=== PATIENT | male | born 1965 | race Caucasian/White ===

== ENCOUNTER 2024-05-01 08:03 | Day surgery (SDC) | payer OTHER ==
[~2024-05-01] VITALS: Ht 180.3 cm; Wt 81.5 kg
[2024-05-01] MEDS ORDERED: CeFAZolin Sodium 2,000 MG VIAL ONE ×2 (08:12→09:41)
[2024-05-01] MEDS ORDERED: Lactated Ringer's 1,000 ML IV ONE ×3 (08:13→10:03)
[2024-05-01] MEDS ORDERED: NS 50 ML IV ONE ×2 (08:13→09:41)
[2024-05-01] MEDS ORDERED: Ondansetron HCl 2 MG / ML 2ML Vial ONE (09:24)
[2024-05-01] MEDS ORDERED: propofoL 20 ML IV ONE (09:24)
[2024-05-01] MEDS ORDERED: Dexamethasone Sod Phos 10 MG/ML 1ML VIAL ONE (09:24)
[2024-05-01] MEDS ORDERED: Ketorolac Tromethamine 30mg Vial ONE (09:24)
[2024-05-01] MEDS ORDERED: FentaNYL Citrate 50 MCG/ML 2 ML Injection ONE ×2 (09:24→10:59)
[2024-05-01] MEDS ORDERED: CARV3.125 (09:27)
[2024-05-01] MEDS ORDERED: AMLO10 (09:27)
[2024-05-01] MEDS ORDERED: ALBU90OI (09:27)
[2024-05-01] MEDS ORDERED: ATOR20 (09:27)
[2024-05-01] MEDS ORDERED: ANORO ELLIPTA1 EACH (09:28)
[2024-05-01] MEDS ORDERED: LISI20 (09:28)
--- NOTE | 2024-05-01 09:30 | NUR ---
05/01/24 0930 Tonia Miller PATIENT HAS OPEN SORE ON RIGHT ANKLE, PATIENT RECENTLY FINISHED ABX FOR INFECTION. IS AWARE.
[2024-05-01] MEDS ORDERED: Bupivacaine 0.5% W/EPI 1:200000 SDV 30ML INJ ONE ×2 (10:04)
--- NOTE | 2024-05-01 10:13 | NUR ---
05/01/24 1012 Shazia Ramirez NOTED TO SMALL OPEN AREAS TO PTS RIGHT ANKLE, DR MENJIVAR AWARE, OK TO PROCEED WITH SURGERY
[2024-05-01] MEDS ORDERED: Vancomycin HCl 1000 MG ADDvantage ONE (10:16)
[2024-05-01] MEDS ORDERED: Phenylephrine HCl 100 MCG/ML-NS 10MLSYR (1MG/10ML) ONE (10:22)
--- NOTE | 2024-05-01 10:45 | NUR ---
05/01/24 1045 Tyree Hooker PT APPEARS RELAXED, TALKATIVE, SMILING, AND JOKING. HE STATES HIS PAIN IS 14/10.
[2024-05-01] MEDS ORDERED: HYDROcodone 5-APAP 325 TAB ONE (11:39)
--- NOTE | 2024-05-01 15:38 | NUR ---
05/01/24 1538 Tyree Hooker LATE ENTRY: PT INITIALLY MAINTAINING O2 93-96% O2 UPON ARRIVAL IN SDU WITH BREIF DROPS LOW 90%. PT WAS ABLE TO RETURN O2 >94% QUICKLY WITH DEEP BREATHS. HE DENIED SOB AND REPORTED ONLY MILD DIZZINESS UPON STANDING. PT WAS GIVEN INCENTIVE SPIROMETER AND PULSE OXYMETRY WAS MOVED FROM FINGER TO TOE AT 1118. PT MAINTAINED O2 >92% AFTER THAT TIME. PT INTIALLY STATED HE WOULD LIKE TO HAVE A PO PAIN MEDICATION THEN REFUSED NORCO. PT STATED HIS PAIN WAS TOLERABLE, DENIED NAUSEA, AND EXPRESSED EAGERNESS TO RETURN HOME AT TIME OF IV REMOVAL. HE BEGAN COMPLAINING OF PAIN AGAIN AND ASKED FOR MEDICATION AFTER IV WAS REMOVED. HE REFUSED NORCO A SECOND TIME FOLLOWING IV REMOVAL. FLACC 0-1/10 THROUGHOUT STAY IN SDU. PT APPEARED CALM, LAUGHING, TALKATIVE, AND JOKING THROUGHOUT STAY IN SDU.
== END 2024-05-01 12:30 | disposition home or self-care (01) ==
LOC: ORSCSDS 08:03
PROVIDERS: Orthopaedic Surgery
PROC: 0SCF0ZZ Extirpation of Matter from Right Ankle Joint, Open Approach (ICD-10-PCS; principal; 2024-05-01 09:30)
DX: T84.9XXA Unspecified complication of internal orthopedic prosthetic device, implant and graft, initial encounter (principal); J44.9 Chronic obstructive pulmonary disease, unspecified; I12.9 Hypertensive chronic kidney disease with stage 1 through stage 4 chronic kidney disease, or unspecified chronic kidney disease; N18.9 Chronic kidney disease, unspecified; F41.9 Anxiety disorder, unspecified; Z79.899 Other long term (current) drug therapy; F17.290 Nicotine dependence, other tobacco product, uncomplicated
CPT/HCPCS: 87071; 87075; 87077; 87147; 87186; 87205; A9270; J0690; J1100; J1885; J2371; J2405; J2704; J3010; J3370; J7120